=== PATIENT | male | born 1950 ===

== ENCOUNTER → 2024-05-25 07:14 | Outpatient (CLI) | payer OTHER ==
[2024-05-25 07:50] LABS: PH,URINE 5.5 (5.0-8.0); URINE APPEARANCE Clear; URINE BILIRRUBIN Negative (NEGATIVE); URINE BLOOD Negative; URINE COLOR Yellow; URINE GLUCOSE Negative (NEGATIVE); URINE LEUKOCYTE Negative; URINE NITRATE Negative; URINE PROTEIN Trace (NEGATIVE)
[2024-05-25 07:53] LABS: URINE EPITHELIAL CELLS 2.7 uL (0.0-38.8)
[2024-05-25 07:56] LABS: HEMATOCRIT 41.8 % (39.0-48.0); HEMOGLOBIN 14.3 g/dL (13-16.00); MEAN CELL VOLUME 84.4 fL (80.0-100.00); MEAN CORPUSCULAR HEMOGLOBIN 28.9 pg (27.00-32.0); MEAN CORPUSCULAR HGB CONC 34.2 g/dl (32.0-36.0); RED BLOOD COUNT 4.95 M/uL (4.00-6.00); RED CELL DISTRIBUTION WIDTH 13.3 % (11.5-14.5)
[2024-05-25 07:58] LABS: PLATELET COUNT 121 K/uL (150-450)
[2024-05-25 08:07] LABS: URINE BACTERIA 2.5 uL (0.0-1933); URINE RBC 1.6 uL (0.0-20.8); URINE WBC 0.9 uL (0.0-23.2)
[2024-05-25 08:25] LABS: ALBUMIN 3.6 gm/dL (3.4-5.0); CALCIUM 9.1 mg/dL (8.5-10.1); CHOL HDL RATIO 2.2 (0-5.0); CREATININE SERUM 1.49 mg/dL (0.70-1.30); GFR 46.36; PHOSPHOROUS 3.6 mg/dL (2.5-4.9); POTASSIUM 3.88 mEq/L (3.5-5.1)
[2024-05-25 08:44] LABS: URIC ACID 5.2 mg/dL (3.5-8.5)
== END | disposition home or self-care (01) ==
LOC: LAB 07:14
PROVIDERS: ATTEND Specialist/Technologist, Other Nephrology
DX: E11.21 Type 2 diabetes mellitus with diabetic nephropathy (principal); D63.1 Anemia in chronic kidney disease; N30.00 Acute cystitis without hematuria; E03.9 Hypothyroidism, unspecified; N18.30 Chronic kidney disease, stage 3 unspecified

== ENCOUNTER 2024-05-25 07:52 | Outpatient (CLI) | payer OTHER | END 2024-05-25 08:01 | disposition home or self-care (01) | LOC: SONOGRAMA 07:52 | PROVIDERS: ATTEND Specialist/Technologist, Other Nephrology | DX: R10.9 Unspecified abdominal pain (principal); N18.30 Chronic kidney disease, stage 3 unspecified; R31.9 Hematuria, unspecified ==

== ENCOUNTER 2024-05-28 09:34 | Outpatient (CLI) | payer OTHER ==
[2024-05-28 10:52] LABS: CREATININE URINE 75.4 MG/DL; URINE PROT QUANT 24HR 10.4 MG/DL
[2024-05-28 11:18] LABS: URINE PROT QUANT 24 HR 163.8 MG/24HR (42-225)
[2024-05-28 11:19] LABS: CREATINE CLEARANCE 55.1 ML/MIN (97-137); CREATININE SERUM 1.5 mg/dL (0.8-1.3)
== END 2024-05-28 09:35 | disposition home or self-care (01) ==
LOC: LAB 09:34
PROVIDERS: ATTEND Specialist/Technologist, Other Nephrology
DX: E03.9 Hypothyroidism, unspecified (principal); N18.30 Chronic kidney disease, stage 3 unspecified; E11.21 Type 2 diabetes mellitus with diabetic nephropathy; D63.1 Anemia in chronic kidney disease; N30.00 Acute cystitis without hematuria

== ENCOUNTER 2024-08-03 08:23 | Outpatient (CLI) | payer OTHER ==
[2024-08-03 09:30] LABS: HEMOGLOBIN 15.1 g/dL (13-16.00); MEAN CELL VOLUME 86.5 fL (80.0-100.00); MEAN CORPUSCULAR HGB CONC 33.5 g/dl (32.0-36.0); PLATELET COUNT 126 K/uL (150-450); RED CELL DISTRIBUTION WIDTH 13.3 % (11.5-14.5)
[2024-08-03 09:45] LABS: PH,URINE 5.5 (5.0-8.0); URINE APPEARANCE Clear; URINE BILIRRUBIN Negative (NEGATIVE); URINE BLOOD Negative; URINE COLOR Yellow; URINE GLUCOSE Negative (NEGATIVE); URINE KETONE Negative (NEGATIVE); URINE LEUKOCYTE Negative; URINE NITRATE Negative; URINE PROTEIN Trace (NEGATIVE)
[2024-08-03 09:50] LABS: URINE EPITHELIAL CELLS 1.9 uL (0.0-38.8); URINE RBC 2.1 uL (0.0-20.8)
[2024-08-03 10:15] LABS: URINE BACTERIA 1.2 uL (0.0-1933); URINE CAST 0.15 uL (0.0-1.40); URINE WBC 1.3 uL (0.0-23.2)
[2024-08-03 10:18] LABS: ALBUMIN 3.7 gm/dL (3.4-5.0); CALCIUM 9.2 mg/dL (8.5-10.1); CREATININE SERUM 1.47 mg/dL (0.70-1.30); GFR 47.09; PHOSPHOROUS 3.3 mg/dL (2.5-4.9); POTASSIUM 3.65 mEq/L (3.5-5.1)
== END 2024-08-03 08:29 | disposition home or self-care (01) ==
LOC: LAB 08:23
PROVIDERS: ATTEND Specialist/Technologist, Other Nephrology
DX: N18.30 Chronic kidney disease, stage 3 unspecified (principal); E11.21 Type 2 diabetes mellitus with diabetic nephropathy; D63.1 Anemia in chronic kidney disease; N30.00 Acute cystitis without hematuria; E78.5 Hyperlipidemia, unspecified; E03.9 Hypothyroidism, unspecified

== ENCOUNTER 2024-10-05 08:09 | Outpatient (CLI) | payer OTHER ==
[2024-10-05 08:58] LABS: URINE APPEARANCE Clear; URINE BILIRRUBIN Negative (NEGATIVE); URINE BLOOD Negative; URINE COLOR Yellow; URINE GLUCOSE Negative (NEGATIVE); URINE KETONE Negative (NEGATIVE); URINE LEUKOCYTE Negative; URINE NITRATE Negative; URINE PROTEIN Trace (NEGATIVE)
[2024-10-05 09:00] LABS: URINE BACTERIA 11.3 uL (0.0-1933)
[2024-10-05 09:04] LABS: HEMATOCRIT 41.8 % (39.0-48.0); HEMOGLOBIN 14.5 g/dL (13-16.00); MEAN CELL VOLUME 85.5 fL (80.0-100.00); MEAN CORPUSCULAR HEMOGLOBIN 29.7 pg (27.00-32.0); MEAN CORPUSCULAR HGB CONC 34.7 g/dl (32.0-36.0); RED BLOOD COUNT 4.89 M/uL (4.00-6.00); RED CELL DISTRIBUTION WIDTH 13.5 % (11.5-14.5)
[2024-10-05 09:05] LABS: PLATELET COUNT 113 K/uL (150-450)
[2024-10-05 09:13] LABS: URINE EPITHELIAL CELLS 1.3 uL (0.0-38.8); URINE RBC 1.2 uL (0.0-20.8); URINE WBC 1.6 uL (0.0-23.2)
[2024-10-05 10:38] LABS: ALBUMIN 3.7 gm/dL (3.4-5.0); BILIRUBIN TOTAL 0.97 mg/dL (0.3-1.2); CALCIUM 9.1 mg/dL (8.5-10.1); CREATININE SERUM 1.42 mg/dL (0.70-1.30); GFR 49.01; GLOBULINA 3.7 G/DL (2.4-3.5); POTASSIUM 3.9 mEq/L (3.5-5.1); TOTAL PROTEIN 7.4 gm/dL (6.4-8.2)
[2024-10-05 10:43] LABS: PROSTATIC SPECIFIC ANTIGEN 7.35 NG/ML (0.010-4.00)
[2024-10-05 12:03] LABS: FOLIC ACID 19.04 ng/ml (4.78-20)
== END 2024-10-05 09:19 | disposition home or self-care (01) ==
LOC: LAB 08:09
PROVIDERS: ATTEND Urology
DX: N40.0 Benign prostatic hyperplasia without lower urinary tract symptoms (principal); N39.0 Urinary tract infection, site not specified; B34.9 Viral infection, unspecified; I10 Essential (primary) hypertension; D64.9 Anemia, unspecified; D51.9 Vitamin B12 deficiency anemia, unspecified; E03.9 Hypothyroidism, unspecified

== ENCOUNTER 2024-10-09 13:25 | Outpatient (CLI) | payer OTHER | END 2024-10-09 13:33 | disposition home or self-care (01) | LOC: SONOGRAMA 13:25 | PROVIDERS: ATTEND Urology | DX: N40.0 Benign prostatic hyperplasia without lower urinary tract symptoms (principal) ==

== ENCOUNTER 2024-10-30 08:04 | Outpatient (CLI) | payer OTHER ==
[2024-10-30 09:00] LABS: PH,URINE 5.5 (5.0-8.0); URINE APPEARANCE Clear; URINE BILIRRUBIN Negative (NEGATIVE); URINE BLOOD Negative; URINE COLOR Yellow; URINE GLUCOSE Negative (NEGATIVE); URINE KETONE Negative (NEGATIVE); URINE LEUKOCYTE Negative; URINE NITRATE Negative; URINE PROTEIN Trace (NEGATIVE)
[2024-10-30 09:02] LABS: URINE EPITHELIAL CELLS 1.8 uL (0.0-38.8); URINE RBC 2.1 uL (0.0-20.8); URINE WBC 11.7 uL (0.0-23.2)
[2024-10-30 09:12] LABS: HEMATOCRIT 43.4 % (39.0-48.0); HEMOGLOBIN 14.5 g/dL (13-16.00); MEAN CELL VOLUME 86.8 fL (80.0-100.00); MEAN CORPUSCULAR HEMOGLOBIN 28.9 pg (27.00-32.0); MEAN CORPUSCULAR HGB CONC 33.3 g/dl (32.0-36.0); RED CELL DISTRIBUTION WIDTH 13.2 % (11.5-14.5)
[2024-10-30 09:13] LABS: PLATELET COUNT 126 K/uL (150-450)
[2024-10-30 09:27] LABS: URINE BACTERIA 3.7 uL (0.0-1933); URINE CAST 0.15 uL (0.0-1.40)
[2024-10-30 10:07] LABS: ALBUMIN 3.8 gm/dL (3.4-5.0); CALCIUM 9.1 mg/dL (8.5-10.1); CREATININE SERUM 1.49 mg/dL (0.70-1.30); GFR 46.36; PHOSPHOROUS 3.2 mg/dL (2.5-4.9); POTASSIUM 3.87 mEq/L (3.5-5.1)
== END 2024-10-30 08:08 | disposition home or self-care (01) ==
LOC: LAB 08:04
PROVIDERS: ATTEND Specialist/Technologist, Other Nephrology
DX: N18.30 Chronic kidney disease, stage 3 unspecified (principal); E11.21 Type 2 diabetes mellitus with diabetic nephropathy; D63.1 Anemia in chronic kidney disease; N30.00 Acute cystitis without hematuria; E78.5 Hyperlipidemia, unspecified; E03.9 Hypothyroidism, unspecified; E11.65 Type 2 diabetes mellitus with hyperglycemia

== ENCOUNTER 2025-01-21 08:42 | Outpatient (CLI) | payer OTHER | END 2025-01-21 08:46 | disposition home or self-care (01) | LOC: SONOGRAMA 08:42 | PROVIDERS: ATTEND Urology | DX: N40.0 Benign prostatic hyperplasia without lower urinary tract symptoms (principal) ==